=== PATIENT | male | born 1960 | race Caucasian/White ===

== ENCOUNTER 2020-02-13 08:35 | Outpatient (RCR) | payer OTHER, SELFPAY | END 2020-03-06 12:06 | disposition home or self-care (01) | LOC: HO.WCC 08:35 | PROVIDERS: Visit Provider Surgery | DX: E11.621 Type 2 diabetes mellitus with foot ulcer (principal); E11.51 Type 2 diabetes mellitus with diabetic peripheral angiopathy without gangrene; L97.519 Non-pressure chronic ulcer of other part of right foot with unspecified severity; T87.89 Other complications of amputation stump; E11.22 Type 2 diabetes mellitus with diabetic chronic kidney disease; E11.40 Type 2 diabetes mellitus with diabetic neuropathy, unspecified; I12.0 Hypertensive chronic kidney disease with stage 5 chronic kidney disease or end stage renal disease; N18.6 End stage renal disease; I77.1 Stricture of artery; F17.200 Nicotine dependence, unspecified, uncomplicated; F14.21 Cocaine dependence, in remission; J44.9 Chronic obstructive pulmonary disease, unspecified; Z89.421 Acquired absence of other right toe(s); Z99.2 Dependence on renal dialysis; Z79.01 Long term (current) use of anticoagulants | CPT/HCPCS: 99214 ==